=== PATIENT | male | born 2000 | race Two or more races ===

== ENCOUNTER 2025-01-27 09:57 | Emergency (ER) | payer SELFPAY ==
[2025-01-27 09:57] VITALS: BMI 23.6
[2025-01-27 10:31] VITALS: BP 153/76; PULSE 68; RESP 17; TEMP 37.1; O2SAT 98
[2025-01-27 10:32] VITALS: BMI 23.9
[2025-01-27 10:56] LABS: Basophils % (Auto) 1 % (0-2.5); Eosinophils # (Auto) 0.1 Thou/mm3 (0.0-0.5); Eosinophils % (Auto) 1 % (0-10); Hematocrit 44.2 % (41.0-53.0); Hemoglobin 15.2 g/dL (13.5-16.0); Immature Granulocytes % (Auto) 0 % (0-0); Immature Granulocytes Auto 0.01 Thou/mm3 (0.00-0.00); Lymphocytes # (Auto) 2.3 Thou/mm3 (1.0-4.8); Lymphocytes % (Auto) 33 % (10-50); Mean Corpuscular HGB Conc 34.4 g/dl (31.0-37.0); Mean Corpuscular Hemoglobin 30.2 pg (25.0-35.0); Mean Corpuscular Volume 88 fL (80-100); Monocytes # (Auto) 0.5 Thou/mm3 (0.0-0.8); Monocytes % (Auto) 8 % (0-12); Neutrophils # (Auto) 4.1 Thou/mm3 (1.8-7.7); Neutrophils % (Auto) 58 % (37-80); Nucleated Red Blood Cell % 0 /100 WBC (0); Platelet Count 308 Thou/mm3 (140-440); RDW Standard Deviation 44.3 fL (35.1-43.9); Red Blood Count 5.04 Miln/mm3 (4.50-5.90); White Blood Count 7.1 Thou/mm3 (3.8-10.6)
[2025-01-27 11:17] LABS: Alanine Aminotransferase 26 U/L (10-49); Albumin, Serum 4.8 gm/dL (3.5-5.0); Alkaline Phosphatase 79 U/L (46-116); Anion Gap 9 (7-16); Aspartate Amino Transferase 31 U/L (0-34); BUN/Creatinine Ratio 12 Ratio (12-20); Bilirubin,Total 0.8 mg/dL (0.3-1.2); Blood Urea Nitrogen 13 mg/dL (9-23); Calcium 9.5 mg/dL (8.3-10.6); Calcium (Corrected) 9.5 mg/dL (8.5-10.1); Carbon Dioxide 29.8 mMol/L (20.0-31.0); Chloride 103 mMol/L (98-107); Creatinine (Component) 1.1 mg/dL (0.6-1.3); Estimated Creatinine Clearance 87.7 mL/min (>60); Globulin 2.4 gm/dL (2.3-3.5); Glucose 94 mg/dL (74-106); Lipase 34 U/L (12-53); Osmolality,Calculated 283 (275-295); Sodium 142 mMol/L (136-145); Total Protein 7.2 gm/dL (5.7-8.2); eGFR > 60 See Note
[2025-01-27 11:42] LABS: Collection Type, Urine Clean Catch; Squamous Epithelial Cell,Urine 0 /hpf (0-5)
[2025-01-27 11:58] LABS: Bacteria,Urine Rare; Bilirubin,Urine Negative (Negative); Blood,Urine 2+ (Negative); Clarity,Urine Clear (Clear/Hazy); Color,Urine Yellow (Lt Yel-Yel); Culture Indicated,Urine Not Indicated; Glucose, Urine Negative (Negative); Ketones,Urine Negative (Negative); Leukocyte Esterase,Urine Negative (Negative); Nitrite,Urine Negative (Negative); Protein,Urine Trace (Neg - Trace); RBC,Urine 1 /hpf (0-3); Specific Gravity,Urine 1.032 (1.001-1.035); Urobilinogen,Urine Negative mg/dL (0.0-1.0); WBC,Urine 1 /hpf (0-5)
--- NOTE | 2025-01-27 12:07 | PD.EDABDPN ---
ED Abdominal Pain RME/HPI General Chief Complaint: Abdominal Pain Stated complaint: RLQ ABD PAIN 02/13 Time seen by provider: 01/27/25 10:36 Arrival date/time: 01/27/25 09:57 25-year-old male with no significant medical problems presents emergency department today for complaint of generalized abdominal pain over the last couple of days patient concerned that he may have an STD. Patient reports no fever nausea or vomiting patient reports no penile discharge but does report having a new partner Limitations: no limitations Related Data Previous Rx's ?Medication ?Instructions ?Recorded ondansetron HCl 4 mg tablet 4 mg PO Q8H PRN nausea and 07/19/21 (Zofran) vomiting #14 tabs oxycodone-acetaminophen 5 mg-325 1 tab PO Q8H PRN pain #14 tabs 07/19/21 mg tablet (Percocet) tamsulosin 0.4 mg capsule (Flomax) 0.4 mg PO QDAY #30 caps 07/19/21 Allergies Allergy/AdvReac Type Severity Reaction Status Date / Time No Known Allergies Allergy Verified 01/27/25 10:00 Review of Systems Review of Systems Systems Reviewed: All systems reviewed, normal except as documented Constitutional Constitutional: Reports system reviewed and no additional complaints, except as documented, Denies fever(s) and Denies headache(s) Eyes Eyes: Reports system reviewed and no additional complaints, except as documented and Denies blurry vision ENT Ears, Nose, Mouth, and Throat: Reports system reviewed and no additional complaints, except as documented, Denies headache(s), Denies nasal congestion and Denies nasal discharge Cardiovascular Cardiovascular: Reports system reviewed and no additional complaints, except as documented, Denies chest pain and Denies dyspnea Respiratory Respiratory: Reports system reviewed and no additional complaints, except as documented, Denies chest congestion, Denies cough and Denies dyspnea Gastrointestinal Gastrointestinal: Reports system reviewed and no additional complaints, except as documented and Reports abdominal pain Genitourinary Genitourinary: Reports system reviewed and no additional complaints, except as documented and Denies difficulty urinating Integumentary/Breasts Skin/Breast: Reports system reviewed and no additional complaints, except as documented and Denies rash Neurologic Neurologic: Reports system reviewed and no additional complaints, except as documented, Reports as per HPI and Denies headache(s) Past Medical History Past Medical History CARDIAC: Negative Congestive Heart Failure RESPIRATORY: Negative Chronic Obstructive Pulmonary Disease (COPD) GENITOURINARY: Positive Kidney Stones; Negative Renal Disease ENDOCRINE: Negative Diabetes Mellitus Type 1 or Diabetes Mellitus Type 2 Social History SMOKING STATUS: Never smoker ED Exam General Limitations: Present no limitations General appearance: Present alert and in no apparent distress Head Head exam: Present atraumatic, normocephalic and normal inspection Eye Eye exam: Present normal appearance, PERRL and EOMI; Absent conjunctival injection ENT ENT exam: Present normal exam, normal oropharynx and mucous membranes moist Neck Neck exam: Present normal inspection, full ROM and trachea midline Chest Chest inspection: Present normal inspection and symmetric chest wall rise Respiratory Respiratory exam: Present normal lung sounds bilaterally; Absent respiratory distress or wheezes Cardiovascular Cardiovascular exam: Present regular rate, normal rhythm and normal heart sounds Abdominal Exam Abdominal exam: Present soft and normal bowel sounds; Absent distention, tenderness, guarding, rebound or rigidity Extremities Exam Extremities exam: Present normal inspection and full ROM Back Exam Back exam: Present normal inspection and full ROM Neurological Exam Neurological exam: Present alert, oriented X3 and CN II-XII intact Psychiatric Psychiatric exam: Present normal affect and normal mood Skin Skin exam: Present warm, dry, intact and normal color Course Quality Measures none Orders Category Date Time Status CBC Stat Lab 01/27/25 10:48 Completed Chlamydia/GC/TV - PCR Stat Lab 01/27/25 11:00 Completed Comprehensive Metabolic Panel Stat Lab 01/27/25 10:48 Completed Lipase Stat Lab 01/27/25 10:48 Completed UA, C/S IF [Urinalysis, C/S if Indicated] Stat Lab 01/27/25 11:00 Completed Lidocaine 1% 20 ml [Xylocaine 1% 20 ML] Med 01/27/25 12:07 Discontinued 2.1 ml INFL X1 ONE cefTRIAXone [Rocephin] Med 01/27/25 12:07 Discontinued 1,000 mg IM X1 ONE Vital Signs Vital signs: Vital Signs Temperature 98.8 F 01/27/25 10:31 Pulse Rate 68 01/27/25 10:31 Respiratory Rate 17 01/27/25 10:31 Blood Pressure 153/76 H 01/27/25 10:31 Pulse Oximetry (%) 98 01/27/25 10:31 O2 saturation 98% room air within normal limits Abdominal Pain MDM MDM Narrative MDM Narrative:: 25-year-old male with no significant medical problems presents emergency department today for complaint of generalized abdominal pain over the last couple of days patient concerned that he may have an STD. Patient reports no fever nausea or vomiting patient reports no penile discharge but does report having a new partner On exam patient appears well does not appear ill or toxic patient is no tenderness of abdomen Lab work obtained no acute emergent findings noted Patient was going to be treated prophylactically for STDs but patient eloped prior to final disposition Lab work is unremarkable patient GC chlamydia and trichomonas came back negative I spoke with the patient after results came back and informed him his results are negative and explained to him he does not require antibiotics at this time Patient data External records reviewed:: [facility] previous records Clinical information provided by:: patient Social determinants that could affect healthcare access:: none Patient has the following chronic illnesses:: None How is presenting disease/condition affected by chronic disease/condition?: no chronic disease Evaluation data The following diagnostics were reviewed and interpreted by me:: lab results Lab and/or radiology exams considered but not ordered:: Labs obtained Interpretation Summary: Reviewed by me Medications / Prescriptions Medications or Prescriptions considered but not ordered:: Ordered Medication administrations:: Medication Administration History Discontinued Medications Ceftriaxone Sodium (Ceftriaxone Sod Inj 1,000 Mg Vial) 1,000 mg IM X1 ONE Stop: 01/27/25 12:08 Lidocaine HCl (Lidocaine Hcl 1% 20 Ml Vial) 2.1 ml INFL X1 ONE Stop: 01/27/25 12:08 Ordered Consultations Consultation(s) initiated? (list below): No Diagnosis Differential diagnosis abdominal pain: abdominal pain, acute appendicitis and small bowel obstruction Most likely diagnosis given after review of the tests above:: Concern for STD, abdominal pain Admission Indicated Admission indicated?: not indicated Admission Request Was there a request for admission?: No Disposition Plan Disposition Plan: Discharge Discharge Attestation Discharge Attestation: The patient and all family members were given an opportunity to ask questions and understood the discharge instructions. Discharge instructions specifically effects, indications for sooner follow up or return to the emergency department, and the expected course of current diagnosis. Patient condition: Stable Discharge Plan Plan Patient Disposition: HOME (Self Care) Discharge Disposition comment: Stable Prescriptions/Referrals Prescriptions/Med Rec: No Action tamsulosin [Flomax] 0.4 mg capsule 0.4 mg PO QDAY Qty: 30 0RF ondansetron HCl [Zofran] 4 mg tablet 4 mg PO Q8H PRN (Reason: nausea and vomiting) Qty: 14 0RF oxycodone-acetaminophen [Percocet] 5-325 mg tablet 1 tab PO Q8H MDD 4 PRN (Reason: pain) Qty: 14 0RF Referrals: No Primary/Family,Physician [Primary Care Provider] - 01/28/25 Problem List Clinical Impression: Abdominal pain, Concern about STD in male without diagnosis Patient/Caregiver Discharge Instructions Education Materials: Medicine for Pain Additional Instructions: Please follow up with your primary care doctor in the next 24-48hrs for any worsening symptoms return here immediately Print Language: Vietnamese Stand Alone Forms: Maryellen Award Info., Patient Portal Info Letter PA/LOSS PREVENTION SPECIALIST Supervising Physician PA/LOSS PREVENTION SPECIALIST Supervising Physician: Dr. kimbrough
--- NOTE | 2025-01-27 13:11 | PC.NURSE ---
called pt back to medicate, no answer from lobby
--- NOTE | 2025-01-27 13:20 | PC.NURSE ---
NA x3 per [employer] pt had been called back once prior to 1310.
[2025-01-27 16:07] LABS: Chlamydia trachomatis PCR Negative (Not Detect); Neisseria Gonorrhoeae DNA PCR Negative (Not Detect); Trichomonas Negative (Negative)
== END 2025-01-27 13:22 | disposition home or self-care (01) ==
PROVIDERS: Nurse Practitioner Primary Care; Emergency Provider Family Medicine
DX: R10.84 Generalized abdominal pain (principal); Z20.2 Contact with and (suspected) exposure to infections with a predominantly sexual mode of transmission
CPT/HCPCS: 36415; 80053; 81001; 83690; 85025; 87491; 87591; 87661; 99283

== ENCOUNTER 2025-01-31 17:12 | Emergency (ER) | payer OTHER, SELFPAY ==
--- NOTE | 2025-01-31 17:30 | XR_ITS ---
Examination: Foot, right, 3 views Technique: AP, oblique, lateral views foot, 3 views Date and time of exam: January 31, 2025 1949 hours INDICATIONS: Injury to the foot today, foot pain FINDINGS: No fracture. No dislocation Soft tissue swelling dorsum of the foot IMPRESSION: No fracture. No opaque foreign body
--- NOTE | 2025-01-31 17:31 | PD.EDRME ---
Rapid Medical Screening Exam E Arrival date/time: 01/31/25 17:12 25-year-old male with no known medical history presents to the emergency room with a chief complaint of tenderness and pain to his right foot. Patient states he was out working when a heavy machinery fell and landed on his foot. I have greeted and performed a focused initial assessment of this patient. A comprehensive ED assessment and evaluation of the patient, analysis of all test results, and completion of the medical decision making process will be conducted by additional ED providers. Chief Complaint: Ankle/Foot Injury Vital signs reviewed by provider: Yes
[2025-01-31 17:33] VITALS: BP 144/84; PULSE 91; RESP 18; TEMP 36.9; O2SAT 98; BMI 23.4
[2025-01-31] MEDS: HYDROcodone/APAP 5/325 TABLET 1 TAB PO (17:42)
--- NOTE | 2025-01-31 19:23 | EDNOTE_ITS ---
<Statement entered by Kathleen Chacon MD - 01/31/25 23:30> As co-signing physician, I was present and available for consult prn. I concur with the plan and care as documented by the midlevel provider. Lower Extremity Injury RME/HPI General Chief Complaint: Ankle/Foot Injury Stated Complaint: Heavy metal fell on right foot Time Seen by Provider: 01/31/25 18:49 Arrival date/time: 01/31/25 17:12 RME / HPI RME / HPI Narrative: 25-year-old male with no known medical history presents to the emergency room with a chief complaint of tenderness and pain to his right foot. Patient states he was out working when a heavy machinery fell and landed on his foot. Patient is able to ambulate but with pain. Denies any other injury. Related Data Previous Rx's ?Medication ?Instructions ?Recorded ondansetron HCl 4 mg tablet 4 mg PO Q8H PRN nausea and 07/19/21 (Zofran) vomiting #14 tabs oxycodone-acetaminophen 5 mg-325 1 tab PO Q8H PRN pain #14 tabs 07/19/21 mg tablet (Percocet) tamsulosin 0.4 mg capsule (Flomax) 0.4 mg PO QDAY #30 caps 07/19/21 ibuprofen 800 mg tablet 800 mg PO Q8H PRN pain #30 t abs 01/31/25 Allergies Allergy/AdvReac Type Severity Reaction Status Date / Time No Known Allergies Allergy Verified 01/31/25 17:15 Review of Systems Review of Systems Narrative Review of Systems: Review of system reviewed and within normal limits except mentioned in HPI ED Exam Narrative Physical exam: VITAL SIGNS: Reviewed. GENERAL APPEARANCE: Alert and interactive, follows commands, no acute distress, HEAD AND FACE: Non-traumatic. ENT: PERRL, pink conjunctivitis, eyelid no trauma, Mucous membrane moist. NECK: Supple, nontender, no nuchal rigidity. CHEST: No tenderness, no crepitus, no paradoxical movement, no retractions. LUNGS: Clear, well ventilated, symmetric, no rales, no wheezing, no ronchi, no stridor, good breath sounds bilaterally. HEART: Regular rate, regular rhythm, no murmur, no gallops. ABDOMEN: Soft, positive bowel sounds, nondistended, no guarding, nontender, no rebound, no masses, RECTAL: Deferred. GENITAL: Deferred. NEUROLOGICAL: Gross motor function intact sensory function intact, Appropriate for age. MUSCULOSKELETAL: low back nontender, full range of motion. EXTREMITIES: Right foot contusion dorsal aspect with abrasion no deformity, full range of motion. SKIN: Color pink, dry, no rash, no lacerations, no abrasions, no contusions. LYMPHATICS: Deferred. Course Quality Measures none Orders Category Date Time Status XR foot comp RT min 3V Stat Exams 01/31/25 17:30 Completed HYDROcodone*/APAP 5/325 [Parthenon 5/325] Med 01/31/25 17:30 Discontinued 1 tab PO X1 ONE Vital Signs Vital signs: Vital Signs Temperature 98.4 F 01/31/25 17:33 Pulse Rate 91 01/31/25 17:33 Respiratory Rate 18 01/31/25 17:33 Blood Pressure 144/84 H 01/31/25 17:33 Pulse Oximetry (%) 98 01/31/25 17:33 Oxygen Delivery Method Room Air 01/31/25 17:33 Extremity Injury, Lower MDM Narrative MDM Narrative:: X-ray of the foot came back unremarkable. Results discussed with the patient. Patient was given Boostrix. Patient data External records reviewed:: None Clinical information provided by:: patient Social determinants that could affect healthcare access:: none Patient has the following chronic illnesses:: None How is presenting disease/condition affected by chronic disease/condition?: no chronic disease Evaluation data The following diagnostics were reviewed and interpreted by me:: radiology exam(s) Lab and/or radiology exams considered but not ordered:: None Interpretation Summary: X-ray of the foot came back unremarkable. Medications / Prescriptions Medications or Prescriptions considered but not ordered:: None Medication administrations:: Medication Administration History Discontinued Medications Hydrocodone Bitart/Acetaminophen (Hydrocodone/Apap 5/325 Tablet) 1 tab PO X1 ONE Stop: 01/31/25 17:31 Last Admin: 01/31/25 17:42 Dose: 1 tab Documented By: Divine Spraguerix Consultations Consultation(s) initiated? (list below): No Diagnosis Extremity Injury, Lower Differential Diagnosis: fracture of toe, ankle fracture and other (Foot contusion) Most likely diagnosis given after review of the tests above:: Foot contusion Admission Indicated Admission indicated?: not indicated Admission Request Was there a request for admission?: No Disposition Plan Disposition Plan: Discharge Discharge Attestation Discharge Attestation: The patient was given an opportunity to ask questions and understood the discharge instructions. Discharge instructions specifically effects, indications for sooner follow up or return to the emergency department, and the expected course of current diagnosis. Patient condition: Stable Discharge Plan Plan Patient Disposition: HOME (Self Care) Discharge Disposition comment: Stable Prescriptions/Referrals Prescriptions/Med Rec: New ibuprofen 800 mg tablet 800 mg PO Q8H PRN (Reason: pain) Qty: 30 0RF No Action tamsulosin [Flomax] 0.4 mg capsule 0.4 mg PO QDAY Qty: 30 0RF ondansetron HCl [Zofran] 4 mg tablet 4 mg PO Q8H PRN (Reason: nausea and vomiting) Qty: 14 0RF oxycodone-acetaminophen [Percocet] 5-325 mg tablet 1 tab PO Q8H MDD 4 PRN (Reason: pain) Qty: 14 0RF Referrals: No Primary/Family,Physician [Primary Care Provider] - In 1 week Problem List Clinical Impression: Contusion of foot Patient/Caregiver Discharge Instructions Discharge Activity: activity as tolerated Education Materials: Bruises (Contusions) Additional Instructions: Thank you for the opportunity for serving you today. You are stable for discharged . You are advised to: Follow-up with your PCP in 1 to 2 days Return to ED for worsening of symptoms Increase oral fluids Take medication as prescribed Print Language: Amharic Stand Alone Forms: Maryellen Award Info., Patient Portal Info Letter RYAN/XI Supervising Physician RYAN/XI Supervising Physician: MD Sony
[2025-01-31 20:21] VITALS: BP 116/82; PULSE 74; RESP 18; TEMP 36.4; O2SAT 98
== END 2025-01-31 20:24 | disposition home or self-care (01) ==
PROVIDERS: Emergency Provider Emergency Medicine
DX: S90.31XA Contusion of right foot, initial encounter (principal); W31.89XA Contact with other specified machinery, initial encounter; Y93.89 Activity, other specified; Y99.0 Civilian activity done for income or pay
CPT/HCPCS: 73630; 99283; A9270